=== PATIENT | male | born 1975 | race Caucasian/White ===

== ENCOUNTER 2018-01-04 07:12 | Emergency (ER) | payer SELFPAY ==
[~2018-01-04] VITALS: Ht 175.3 cm; Wt 83.9 kg
[~2018-01-04 07:12] MED LIST: AMOX500C25 PO; CLAR500T3 PO; LANS30EC3 PO; PANT40EC PO
[2018-01-04 07:18] VITALS: BP 147/75
[2018-01-04] MEDS ORDERED: LORazepam 2 MG/ML VIAL IVP ONE (07:35)
[2018-01-04] MEDS ORDERED: NACL 0.9% 1,000 ML IV ONE (07:35)
[2018-01-04 08:10] LABS: BASOPHILS % (AUTO) 0.6 % (0.0-2.0); EOSINOPHILS % (AUTO) 0.8 % (0.0-4.0); HEMATOCRIT 41.7 % (36-52); HEMOGLOBIN 13.9 g/dL (12.0-18.0); LYMPHOCYTES # (AUTO) 0.4 K/uL (2.0-11.5); LYMPHOCYTES % (AUTO) 8.5 % (20.5-51.1); MEAN CORPUSCULAR HEMOGLOBIN 30 pg (27-31); MEAN CORPUSCULAR HGB CONC 33 g/dL (33-37); MEAN CORPUSCULAR VOLUME 91.1 fL (80-94); MONOCYTES # (AUTO) 0.4 K/uL (0.8-1.0); MONOCYTES % (AUTO) 8.5 % (1.7-9.3); NEUTROPHILS # (AUTO) 4.3 K/uL (1.8-7.7); NEUTROPHILS % (AUTO) 81.6 % (42.2-75.2); PLATELET COUNT (AUTO) 86 K/uL (140-450); RED BLOOD CELL COUNT(AUTO) 4.58 MIL/uL (4.20-6.10); WHITE BLOOD COUNT (AUTO) 5.3 K/uL (4.8-10.8)
[2018-01-04 08:34] LABS: ALBUMIN 3.9 g/dL (3.4-5.0); ANION GAP 11.6 (8-16); ASPARTATE AMINOTRANSFERASE 68 U/L (15-37); CARBON DIOXIDE 26.9 mmol/L (21-32); CHLORIDE 101 mmol/L (98-107); CREATININE 1.2 mg/dL (0.7-1.3); GFR ARICAN-AMERICAN 85 mL/min (>90); GLUCOSE 100 mg/dL (74-106); POTASSIUM 3.5 mmol/L (3.5-5.1); SODIUM SERUM 136 mmol/L (136-145); TOTAL BILIRUBIN 0.5 mg/dL (0.0-1.0); UREA NITROGEN, BLOOD 8 mg/dL (7-18)
[2018-01-04] MEDS ORDERED: HALOPERIDOL IM 5 MG/ML VIAL IM ONE (09:30)
[2018-01-04 10:22] LABS: APPEARANCE,URINE CLEAR (CLEAR); BILIRUBIN,URINE NEGATIVE (NEGATIVE); BLOOD, URINE NEGATIVE (NEGATIVE); COLOR,URINE YELLOW (YELLOW); LEUKOCYTE ESTERASE ,URINE NEGATIVE (NEGATIVE); NITRITE, URINE NEGATIVE (NEGATIVE); PH,URINE 6.5 (5.0-9.0); UGLUCOSE NEGATIVE (NEGATIVE)
[2018-01-04 14:05] VITALS: BP 128/75
== END 2018-01-04 14:02 | disposition home or self-care (01) ==
LOC: MED 07:12
DX: F10.239 Alcohol dependence with withdrawal, unspecified (principal); G47.00 Insomnia, unspecified; Z79.2 Long term (current) use of antibiotics; Z79.899 Other long term (current) drug therapy; Y90.0 Blood alcohol level of less than 20 mg/100 ml
CPT/HCPCS: 36415; 80053; 81003; 85025; 96372; 96374; 99284; G0482; J1630; J2060; J7030

== ENCOUNTER 2018-11-08 15:26 | Inpatient (IN) | payer MEDICAID ==
[~2018-11-08] VITALS: Ht 175.3 cm; Wt 83.5 kg
[2018-11-08 15:36] VITALS: BP 138/82
--- NOTE | 2018-11-08 15:42 | NUR ---
Patient ambulated to bed 11. RN evaluating patient at bedside.
[2018-11-08] MEDS ORDERED: ONDANSETRON 4 MG/2 ML VIAL IVP ONE (16:00)
[2018-11-08] MEDS ORDERED: NACL 0.9% 1,000 ML IV ONE (16:00)
[2018-11-08] MEDS ORDERED: MORPHINE SULFATE 4 MG/ML SYR IVP ONE (16:00)
--- NOTE | 2018-11-08 16:00 | NUR ---
BIB SELF. AAO X4 C/O ALCOHOL WITHDRAWALS, INTERMITTENT CHEST PAIN & LIVER PAIN 10/10, SOB SHAKINESS, AUDITORY HALLUCINATIONS "LET'S GO GET HIM" X TODAY. PER PT, LAST ALCOHOL INTAKE WAS YESTERDAY AND PT HAS BEEN DRINKING ALCOHOL FOR A WEEK. PT DENIES SI, NAUSEA. VOMITED X1 TODAY. LEFT HAND TREMORS NOTICED. DENIES N/V/D; SKIN IS PINK/WARM/DRY; AAOX4 WITH EVEN AND STEADY GAIT; LUNGS CLEAR BL; HR EVEN AND REGULAR; PT DENIES ANY FEVER, CP, SOB, OR COUGH AT THIS TIME; PATIENT STATES PAIN OF 0/10 AT THIS TIME; VSS; PATIENT POSITIONED FOR COMFORT; HOB ELEVATED; BEDRAILS UP X2; BED DOWN. ER MD MADE AWARE OF PT STATUS.
[2018-11-08 16:25] LABS: EOSINOPHILS # (AUTO) 0.2 K/uL (0-0.4); HEMATOCRIT 41.9 % (36-52); HEMOGLOBIN 14.1 g/dL (12.0-18.0); LYMPHOCYTES # (AUTO) 1.1 K/uL (2.0-11.5); LYMPHOCYTES % (AUTO) 25.2 % (20.5-51.1); MEAN CORPUSCULAR HEMOGLOBIN 30 pg (27-31); MEAN CORPUSCULAR HGB CONC 34 g/dL (33-37); MEAN CORPUSCULAR VOLUME 88.2 fL (80-94); MONOCYTES # (AUTO) 0.4 K/uL (0.8-1.0); MONOCYTES % (AUTO) 8.6 % (1.7-9.3); NEUTROPHILS # (AUTO) 2.8 K/uL (1.8-7.7); NEUTROPHILS % (AUTO) 62.2 % (42.2-75.2); PLATELET COUNT (AUTO) 161 K/uL (140-450); RED BLOOD CELL COUNT(AUTO) 4.75 MIL/uL (4.20-6.10); RED CELL DISTRIBUTION WIDTH 14.8 % (11.6-13.7); WHITE BLOOD COUNT (AUTO) 4.5 K/uL (4.8-10.8)
[2018-11-08 16:30] LABS: APPEARANCE,URINE CLEAR (CLEAR); BILIRUBIN,URINE NEGATIVE (NEGATIVE); BLOOD, URINE TRACE-I (NEGATIVE); COLOR,URINE YELLOW (YELLOW); LEUKOCYTE ESTERASE ,URINE NEGATIVE (NEGATIVE); NITRITE, URINE NEGATIVE (NEGATIVE); PH,URINE 7.5 (5.0-9.0); UGLUCOSE NEGATIVE (NEGATIVE)
[2018-11-08 16:40] LABS: ANION GAP 15.3 (8-16); CARBON DIOXIDE 25.2 mmol/L (21-32); CREATININE 0.9 mg/dL (0.7-1.3); POTASSIUM 3.5 mmol/L (3.5-5.1)
[2018-11-08 16:42] LABS: BARBITURATE, URINE NEG. ng/ml (NEG <=200); BENZODIAZEPINE, URINE NEG. ng/mL (NEG <=200); CANNABINOID, URINE NEG. ng/mL (NEG <=50); COCAINE, URINE NEG. ng/mL (NEG <=300); OPIATE, URINE NEG. ng/mL (NEG <=2000); PHENCYCLIDINE SCREEN,URINE NEG. ng/mL (NEG <=25)
[2018-11-08 16:46] LABS: ALBUMIN 3.9 g/dL (3.4-5.0)
[2018-11-08 16:47] LABS: RBC,URINE 0-5 /HPF (0-5); WBC,URINE NONE SEEN /HPF (0-5)
[2018-11-08] MEDS ORDERED: LORazepam 2 MG/ML VIAL IVP ONE (16:55)
--- NOTE | 2018-11-08 17:03 | NUR ---
PT IS RESTING IN BED WITH EYES OPEN. PT STATES HIS PAIN HAS BEEN IMPROVED TO 5/10. VSS.
[2018-11-08] MEDS ORDERED: NACL 0.9% 1,000 ML IV SCH (17:30)
[2018-11-08] MEDS ORDERED: LORazepam 1 MG TAB PO PRN (17:30)
[2018-11-08] MEDS ORDERED: ONDANSETRON 4 MG/2 ML VIAL IM/IVP PRN (17:30)
[2018-11-08] MEDS ORDERED: LORazepam 2 MG/ML VIAL IM/IVP PRN ×2 (17:30→20:50)
[2018-11-08] MEDS ORDERED: ACETAMINOPHEN 325 MG TAB PO PRN (17:30)
[2018-11-08] MEDS ORDERED: HYDROcodone/APAP 5/325 MG 1 TAB TAB PO PRN (17:30)
--- NOTE | 2018-11-08 17:55 | NUR ---
Patient will be admitted to care of Alcohol withdrawal. Admited to Telemetry. Will go to room 110B. Belongings list completed. Report to HERNANDEZ Rangel.
--- NOTE | 2018-11-08 17:55 | NUR ---
RECEIVED BED SIDE REPORT FROM ABATEMENT WORKER HERNANDEZ CARMONA. PT ARRIVED VIA GURNEY. ABLE TO AMBULATE FROM DOOR TO BED. ARRIVED ON 2L NC. TOOK PT OFF O2 AND O2 SAT 97%. PT STATES HE HAS RIGHT SIDE ABDOMINAL PAIN. PAIN MEDS GIVEN IN ER. MRSA SWAPPED. NS RUNNING AT 120CC/HR THROUGH RIGHT AC 20G. VS STABLE. ON SEIZURE PRECAUTIONS, WILL CONTINUE TO MONITOR
[2018-11-08 18:06] LABS: MAGNESIUM 1.6 mg/dL (1.8-2.4); PHOSPHORUS 2.2 mg/dL (2.5-4.9)
[2018-11-08 18:19] LABS: PROTHROMBIN TIME 9.7 secs (10.8-13.4)
[2018-11-08] MEDS: FAMOTIDINE 20 MG/2 ML VIAL IV SCH (18:35)
[2018-11-08] MEDS ORDERED: HYDROcodone/APAP 10/325 MG 1 TAB TAB PO PRN (19:05)
--- NOTE | 2018-11-08 19:13 | NUR ---
GAVE BEDSIDE REPORT TO CASINO SLOT SUPERVISOR HERNANDEZ LYLES. PT STABLE
--- NOTE | 2018-11-08 19:15 | NUR ---
Received endorsement from AM shift RN; patient A/Ox4, able to make needs known, Mongolian speaking, ambulatory. Introduced self, updated board. No SOB or distress noted, on room air. IV site on right antecubital, 20 gauge, with IVF running at 120mL/hr. Skin intact. Bed in the lowest position, call light within reach. Initial assessment done. Will continue to monitor.
[2018-11-08 19:19] LABS: ALBUMIN 3.9 g/dL (3.4-5.0); FREE T4 (FREE THYROXINE) 0.89 ng/dL (0.76-1.46); THYROID STIMULATING HORMONE 1.6 uIU/mL (0.34-3.74)
[2018-11-08] MEDS ORDERED: MORPHINE SULFATE 2 MG/ML SYR IVP SCH (19:20)
[2018-11-08 19:29] VITALS: BP 134/73
[2018-11-08] MEDS ORDERED: SODIUM PHOS / POTASSIUM PHOS 1 PKT PDR PO SCH (20:00)
--- NOTE | 2018-11-08 20:10 | NUR ---
Vitals taken, no SOB or distress noted.
[2018-11-08] MEDS: chlordiazePOXIDE 25 MG CAP PO SCH (21:17)
--- NOTE | 2018-11-08 21:40 | NUR ---
Due meds given, tolerated well.
--- NOTE | 2018-11-08 23:45 | NUR ---
Vitals taken, no distress noted. Patient asleep, visible chest rise and fall noted.
[2018-11-09] VITALS: BP 133/79
[2018-11-09] MEDS: chlordiazePOXIDE 25 MG CAP PO SCH ×5 (00:18→23:33)
[2018-11-09] MEDS: MORPHINE SULFATE 2 MG/ML SYR IVP PRN ×2 (00:23→09:43)
[2018-11-09] MEDS: DEXT 5% /NACL 0.9% 1,000 ML IV SCH ×2 (01:06→09:32)
[2018-11-09] MEDS ORDERED: THIAMINE 200 MG/2 ML VIAL IV ONE (01:20)
--- NOTE | 2018-11-09 02:30 | NUR ---
Checks made; patient sleeping comfortably.
[2018-11-09 04:00] VITALS: BP 134/87
--- NOTE | 2018-11-09 04:50 | NUR ---
Vitals taken, no SOB or distress noted.
[2018-11-09 06:38] LABS: ANION GAP 8.7 (8-16); CARBON DIOXIDE 29.6 mmol/L (21-32); CREATININE 0.8 mg/dL (0.7-1.3); POTASSIUM 3.3 mmol/L (3.5-5.1)
[2018-11-09 06:42] LABS: BASOPHILS % (AUTO) 0.4 % (0.0-2.0); EOSINOPHILS # (AUTO) 0.2 K/uL (0-0.4); EOSINOPHILS % (AUTO) 3.6 % (0.0-4.0); HEMATOCRIT 39.4 % (36-52); HEMOGLOBIN 13.2 g/dL (12.0-18.0); LYMPHOCYTES % (AUTO) 23.5 % (20.5-51.1); MEAN CORPUSCULAR HEMOGLOBIN 30 pg (27-31); MEAN CORPUSCULAR HGB CONC 34 g/dL (33-37); MEAN CORPUSCULAR VOLUME 88.8 fL (80-94); MONOCYTES # (AUTO) 0.5 K/uL (0.8-1.0); NEUTROPHILS # (AUTO) 2.6 K/uL (1.8-7.7); NEUTROPHILS % (AUTO) 61.5 % (42.2-75.2); PLATELET COUNT (AUTO) 116 K/uL (140-450); RED BLOOD CELL COUNT(AUTO) 4.44 MIL/uL (4.20-6.10); RED CELL DISTRIBUTION WIDTH 15.2 % (11.6-13.7); WHITE BLOOD COUNT (AUTO) 4.2 K/uL (4.8-10.8)
[2018-11-09 06:58] LABS: CHOL/HDL RATIO 1.8 (1-4.5)
--- NOTE | 2018-11-09 07:20 | NUR ---
Endorsed patient to AM shift RN for continuity of care; patient in stable condition.
--- NOTE | 2018-11-09 07:25 | NUR ---
RECEIVED PT FROM ACADEMIC AFFAIRS SPECIALIST NURSERAFAL, PT IS AWAKE AND LYING ON THE BED WITH IV LINE ON THE RT AC G. 20 WITH D5NS INFUSING AT 125ML/HR,INTACT, SIDE RAILS ARE UP AND CALL LIGHT WITHIN REACH, PT VERBALIZED A PAIN RATE OF 5/10 ON THE ABDOMEN AND NO OTHER SIGN OF DISTRESS NOTED. WILL MONITOR PT.
[2018-11-09 08:00] VITALS: BP 139/84
[2018-11-09] MEDS ORDERED: MAGNESIUM OXIDE 400 MG TAB PO SCH (09:00)
[2018-11-09] MEDS ORDERED: chlordiazePOXIDE 25 MG CAP PO SCH (09:00)
[2018-11-09] MEDS ORDERED: POTASSIUM CHLORIDE 10 MEQ TABER PO SCH ×2 (09:00→23:30)
[2018-11-09] MEDS: THIAMINE 100 MG TAB PO SCH (09:34)
[2018-11-09] MEDS: MULTIVITAMIN 1 TAB PO SCH (09:34)
[2018-11-09] MEDS: FOLIC ACID 1 MG TAB PO SCH (09:35)
--- NOTE | 2018-11-09 09:35 | NUR ---
PT IS AWAKE AND LYING ON THE BED, ORAL MEDICATIONS WERE GIVEN AND PT TOLERATED IT. NO SIGN OF DISTRESS NOTED AND WILL MONITOR PT.
--- NOTE | 2018-11-09 09:43 | NUR ---
PT WAS GIVEN MORPHINE VIA IV PUSH NOW FOR A PAIN RATE OF 8/10 ON THE ABDOMEN. WILL MONITOR AND RE-ASSESS PAIN.
[2018-11-09 12:00] VITALS: BP 137/85
--- NOTE | 2018-11-09 13:10 | NUR ---
PT SIGNED THE CONSENT FOR THE CT OF ABDOMEN AND PELVIS WITH CONTRAST NOW.
--- NOTE | 2018-11-09 13:43 | NUR ---
PT IS OFF THE UNIT NOW FOR A CCT OF ABDOMEN AND PELVIS WITH IV CONTRAST.
[2018-11-09 16:00] VITALS: BP 134/84
[2018-11-09] MEDS: NACL 0.9% 1,000 ML IV SCH (16:35)
--- NOTE | 2018-11-09 17:30 | NUR ---
PT WAS STARTED ON A CLEAR LIQUID DIET NOW.
[2018-11-09] MEDS: FAMOTIDINE 20 MG/2 ML VIAL IV SCH (18:24)
[2018-11-09] MEDS ORDERED: POTASSIUM CHLORIDE 20 MEQ, LIDOCAINE MPF 1% - 5 mL VIAL 25 MG in NACL 0.9% 250 ML IV SCH (18:50)
[2018-11-09] MEDS ORDERED: DICYCLOMINE HCL LIQUID 10 MG/5 ML UDC PO SCH (18:50)
[2018-11-09] MEDS ORDERED: LIDOCAINE VISCOUS 2% 20 ML UDC PO SCH (18:50)
[2018-11-09] MEDS ORDERED: ALUMINUM HYD/MAG/SIMETHICONE 30 ML UDC PO SCH (18:50)
[2018-11-09] MEDS ORDERED: MAG SULF 2000 MG/WATER PREMIX 50 ML IV SCH (18:50)
--- NOTE | 2018-11-09 19:20 | NUR ---
ENDORSED PT TO IMAGING SYSTEM ADMINISTRATOR NURSERAMA FOR CONTINUITY OF CARE.
--- NOTE | 2018-11-09 19:21 | NUR ---
RECEIVED BEDSIDE REPORT FROM DAY SHIFT NURSE. NO SOB NOTED. IV SITE ON RAC 20G, INTACT, PATENT AND ASYMPTOMATIC. SKIN INTACT, WARM AND DRY TO TOUCH. BOARD UPDATED, POC REVIEWED AND DISCUSSED WITH PT. PT VERBALIZED UNDERSTANDING. ALL SAFETY MEASUREMENT ARE MET. POTASSIUM/LIDOCAINE AND XYLOCAINE VISCOUS NOT STARTED ON 1850 DURING DAY SHIFT. BED IN LOW POSITION, CALL LIGHT WITHIN REACH.
--- NOTE | 2018-11-09 19:41 | NUR ---
CONFIRMED WITH DR. SMALLS AND GIVEN XYLOCAINE VISCOUS.
[2018-11-09 20:00] VITALS: BP 126/88
--- NOTE | 2018-11-09 20:30 | NUR ---
REPORTED TO DR. SMALLS THAT WE DON'T MIX POTASSIUM AND LIDOCAINE IN THE FLOOR AND ASK TO CHANGE ORDER. DR. SMALLS DID NOT WANT TO CHANGE ORDER BECAUSE RN OTOLARYNGOLOGY PHARMACY IS COMING FOR DIFFERENT PT. AND WE SHOULD ASK THEM TO MIX. INFORMED CHARGE NURSE, NAYANA.
--- NOTE | 2018-11-09 21:00 | NUR ---
HELD HEPARIN D/T LOW AND DECREASED PLT. 160->116.
--- NOTE | 2018-11-09 23:33 | NUR ---
SETUP TECHNICIAN PHARMACY IS LATE AND DR. SMALLS CHANGED ORDER TO PO POTASSIUM. GIVEN K DUR AND LIBRIUM DR. ACOSTA. POT TOLERATED WELL. Addendum: 11/11/18 at 0054 by Lupe Weinstein RN WHEN RN PULLED OUT LIBRIUM, COUNTED MED 10, IT SAID "RECOUNT", IT WAS 10. RAMA NG WAITING FOR CHARGE NURSENAYANA TO SHOW IT. NAYANA CAME BUT TIMES OUT SO NEEDED TO CLOSE DRAWER AND PULLED IT OUT AGAIN. COUNT MEDS WITH CHARGE NURSENAYANA. BEGINNING COUNT, 10 WAS CONFIRMED.
[2018-11-10] VITALS: BP 132/93
--- NOTE | 2018-11-10 01:15 | NUR ---
PT SLEEPING IN BED. NO S/S OF SOB NOTED. BED IN LOW POSITION, CALL LIGHT WITHIN REACH.
--- NOTE | 2018-11-10 03:25 | NUR ---
PT SLEEPING IN BED. BREATHING EVEN AND UNLABORED. NO ACUTE DISTRESS NOTED.
[2018-11-10 04:00] VITALS: BP 126/79
[2018-11-10] MEDS: chlordiazePOXIDE 25 MG CAP PO SCH ×4 (05:10→23:52)
--- NOTE | 2018-11-10 05:10 | NUR ---
GIVEN LIBRIUM MD ORDERED. PT TOLERATED WELL. WILL CONTINUE TO MONITOR.
[2018-11-10] MEDS: NACL 0.9% 1,000 ML IV SCH ×2 (05:11→17:35)
--- NOTE | 2018-11-10 06:43 | NUR ---
PT AWAKE, SITTING IN BED AND WATCHING TV. NO ACUTE DISTRESS NOTED.
--- NOTE | 2018-11-10 07:23 | NUR ---
RECEIVED REPORT FROM DIRECT ENTRY MIDWIFE NURSE. PT IS AAOX4, CALM AND COOPERATIVE. RESPIRATIONS EVEN AND UNLABORED ON RA. NO C/O PAIN AT THIS TIME. ABDOMEN SOFT, ACTIVE BS, LBM 11/10/18. IV ON RT AC 20 GA RUNNING IVF PER ORDER. SKIN IS INTACT, WARM TO TOUCH. PT REPORTS THAT HE HAD DIFFICULTY SLEEPING AT NIGHT D/T HEARING VOICES TALKING ABOUT HIM. PT SAID "NO" WHEN ASKED IF HE HAD THOUGHTS OF HURTING HIMSELF. REVIEWED POC WITH PT, PT VERBALIZED UNDERSTANDING.
[2018-11-10 08:00] VITALS: BP 123/80
[2018-11-10 08:03] LABS: ANION GAP 11.4 (8-16); CARBON DIOXIDE 30.5 mmol/L (21-32); CREATININE 0.9 mg/dL (0.7-1.3); POTASSIUM 3.9 mmol/L (3.5-5.1)
--- NOTE | 2018-11-10 08:08 | NUR ---
PATIENT HAS BEEN SCREENED AND CATEGORIZED LOW NUTRITION RISK. PATIENT WILL BE SEEN WITHIN 7 DAYS OF ADMISSION. 11/15/[address]
[2018-11-10] MEDS: MULTIVITAMIN 1 TAB PO SCH (08:14)
[2018-11-10] MEDS: FOLIC ACID 1 MG TAB PO SCH (08:14)
[2018-11-10] MEDS: THIAMINE 100 MG TAB PO SCH (08:14)
--- NOTE | 2018-11-10 08:14 | NUR ---
PT GIVEN MORNING MEDICATIONS. PT WAS ABLE TO SPEAK WITH DR. AUSTIN ABOUT CONCERNS. PT HAS NO COMPLAINTS OR SIGNS OF DISTRESS AT THIS TIME.
[2018-11-10 08:17] LABS: MAGNESIUM 2.2 mg/dL (1.8-2.4); PHOSPHORUS 3.2 mg/dL (2.5-4.9)
[2018-11-10 08:38] LABS: BASOPHILS % (AUTO) 0.4 % (0.0-2.0); EOSINOPHILS # (AUTO) 0.2 K/uL (0-0.4); EOSINOPHILS % (AUTO) 3.7 % (0.0-4.0); HEMATOCRIT 42.7 % (36-52); HEMOGLOBIN 14.2 g/dL (12.0-18.0); LYMPHOCYTES # (AUTO) 0.8 K/uL (2.0-11.5); LYMPHOCYTES % (AUTO) 18.4 % (20.5-51.1); MEAN CORPUSCULAR HEMOGLOBIN 30 pg (27-31); MEAN CORPUSCULAR HGB CONC 33 g/dL (33-37); MEAN CORPUSCULAR VOLUME 90.1 fL (80-94); MONOCYTES # (AUTO) 0.4 K/uL (0.8-1.0); MONOCYTES % (AUTO) 8.7 % (1.7-9.3); NEUTROPHILS # (AUTO) 2.8 K/uL (1.8-7.7); NEUTROPHILS % (AUTO) 68.8 % (42.2-75.2); PLATELET COUNT (AUTO) 112 K/uL (140-450); RED BLOOD CELL COUNT(AUTO) 4.74 MIL/uL (4.20-6.10); RED CELL DISTRIBUTION WIDTH 15.2 % (11.6-13.7); WHITE BLOOD COUNT (AUTO) 4.1 K/uL (4.8-10.8)
[2018-11-10] MEDS: MULTIVITAMIN-12 10 ML, THIAMINE 100 MG, MAGNESIUM SULFATE 50% 2,000 MG, FOLIC ACID 1 MG... IV SCH ×5 (08:51)
--- NOTE | 2018-11-10 08:51 | NUR ---
HELD HEPARIN AT THIS TIME, AWAITING LAB TO POST VALUES.
[2018-11-10] MEDS ORDERED: QUEtiapine FUMARATE 25 MG TAB PO SCH ×2 (10:18→21:00)
--- NOTE | 2018-11-10 11:54 | NUR ---
RECEIVED VALUE FROM LAB, PLATELET AT 112, HELD HEPARIN.
[2018-11-10 12:00] VITALS: BP 138/89
[2018-11-10 16:00] VITALS: BP 118/71
[2018-11-10] MEDS: FAMOTIDINE 20 MG/2 ML VIAL IV SCH (18:24)
--- NOTE | 2018-11-10 18:24 | NUR ---
GIVEN PEPCID AND LIBRIUM PER ORDER. PT HAS NO C/O PAIN AT THIS TIME.
[2018-11-10] MEDS ORDERED: MULTIVITAMIN-12 10 ML, THIAMINE 100 MG, FOLIC ACID 1 MG, MAGNESIUM SULFATE 50% 2,000 MG... IV SCH ×5 (19:00)
--- NOTE | 2018-11-10 19:22 | NUR ---
ENDORSED PT TO OIM ARCHITECT NURSE. PT HAS NO SIGNS OF DISTRESS AT THIS TIME.
--- NOTE | 2018-11-10 19:23 | NUR ---
RECEIVED BEDSIDE REPORT FROM DAY SHIFT NURSE. NO S/S OF SOB NOTED IN ROOM AIR. SKIN INTACT, WARM AND DRY TO TOUCH. IV SITE ON RAC 20G, PATENT, INTACT, ASYMPTOMATIC. BOARD UPDATED, POC REVIEWED AND DISCUSSED WITH PT. PT VERBALIZED UNDERSTANDING. BED IN LOW POSITION. CALL LIGHT WITHIN REACH.
[2018-11-10 20:00] VITALS: BP 112/67
[2018-11-10] MEDS ORDERED: ZOLPIDEM 5 MG TAB PO SCH (21:30)
--- NOTE | 2018-11-10 21:34 | NUR ---
PT C/O INSOMNIA, GIVEN AMBIEN DR ORDERED. GIVEN HEPARIN WITH PLT 112, REPORTED AND COFIRMED WITH DR. SMALLS BEFORE GIVEN. PT TOLERATED WELL.
--- NOTE | 2018-11-10 23:52 | NUR ---
GIVEN LIBRIUM DRSiddhartha ORDERED. PT TOLERATED WELL. WILL CONTINUE TO MONITOR.
[2018-11-11] VITALS: BP 118/70
--- NOTE | 2018-11-11 02:12 | NUR ---
PT SLEEPING IN BED COMFORTABLY. BREATHING EVEN AND UNLABORED. BED IN LOW POSITION. CALL LIGHT WITHIN REACH.
[2018-11-11 04:00] VITALS: BP 112/68
--- NOTE | 2018-11-11 04:00 | NUR ---
VS CHECKED, WITHIN NORMAL RANGE. NO ACUTE DISTRESS NOTED.
[2018-11-11] MEDS: chlordiazePOXIDE 25 MG CAP PO SCH (06:05)
--- NOTE | 2018-11-11 06:05 | NUR ---
GIVEN LIBRIUM MD ORDERED. PT TOLERATED WELL.
[2018-11-11] MEDS: NACL 0.9% 1,000 ML IV SCH (06:06)
--- NOTE | 2018-11-11 06:57 | NUR ---
PT SITTING IN CHAIR, WATCHING TV. NO ACUTE DISTRESS NOTED.
--- NOTE | 2018-11-11 07:16 | NUR ---
RECEIVED REPORT FROM CLINICAL STAFF PHARMACIST NURSE. PATIENT SITTING IN BEDSIDE CHAIR WATCHING TV. NO DISTRESS NOTED. DENIES ANY PAIN. AAOX4, CALM, COOPERATIVE, SKIN COLOR APPROPRIATE TO ETHNICITY, WARM TO TOUCH. SKIN INTACT. RESPIRATIONS EVEN, UNLABORED, ON ROOM AIR. IV SITE INTACT, PATENT, AND INFUSING IVF PER MD ORDERS. REVIEWED PLAN OF CARE WITH PATIENT. PATIENT VERBALIZED UNDERSTANDING. SAFETY MEASURES IN PLACE, CALL LIGHT WITHIN REACH. WILL CONTINUE TO MONITOR.
[2018-11-11 07:25] LABS: BASOPHILS % (AUTO) 0.4 % (0.0-2.0); EOSINOPHILS # (AUTO) 0.2 K/uL (0-0.4); EOSINOPHILS % (AUTO) 3.4 % (0.0-4.0); HEMATOCRIT 39.9 % (36-52); HEMOGLOBIN 13.1 g/dL (12.0-18.0); LYMPHOCYTES % (AUTO) 19.6 % (20.5-51.1); MEAN CORPUSCULAR HEMOGLOBIN 30 pg (27-31); MEAN CORPUSCULAR HGB CONC 33 g/dL (33-37); MONOCYTES # (AUTO) 0.5 K/uL (0.8-1.0); MONOCYTES % (AUTO) 9.5 % (1.7-9.3); NEUTROPHILS # (AUTO) 3.4 K/uL (1.8-7.7); NEUTROPHILS % (AUTO) 67.1 % (42.2-75.2); PLATELET COUNT (AUTO) 107 K/uL (140-450); RED BLOOD CELL COUNT(AUTO) 4.44 MIL/uL (4.20-6.10); RED CELL DISTRIBUTION WIDTH 15.4 % (11.6-13.7)
[2018-11-11 07:39] LABS: ANION GAP 12.2 (8-16); CARBON DIOXIDE 27.6 mmol/L (21-32); POTASSIUM 3.8 mmol/L (3.5-5.1)
[2018-11-11 07:55] LABS: MAGNESIUM 1.8 mg/dL (1.8-2.4)
[2018-11-11 08:00] VITALS: BP 134/84
[2018-11-11] MEDS: MULTIVITAMIN-12 10 ML, THIAMINE 100 MG, MAGNESIUM SULFATE 50% 2,000 MG, FOLIC ACID 1 MG... IV SCH ×5 (09:00)
--- NOTE | 2018-11-11 09:00 | NUR ---
PATIENT TAKING A SHOWER. WILL CONTINUE TO MONITOR WHEN PATIENT DONE FROM SHOWER
[2018-11-11] MEDS: FOLIC ACID 1 MG TAB PO SCH (09:57)
[2018-11-11] MEDS: THIAMINE 100 MG TAB PO SCH (09:57)
[2018-11-11] MEDS: MULTIVITAMIN 1 TAB PO SCH (09:58)
--- NOTE | 2018-11-11 09:59 | NUR ---
PATIENT SITTING IN BEDSIDE CHAIR WATCHING TV. SCHEDULED MEDICATIONS DUE GIVEN. BANANA BAG NOT GIVEN D/T PATIENT BEING DISCHARGED. HEPARIN SUB Q NOT GIVEN PATIENT AMBULATING AND PATIENT REFUSED AT THIS TIME D/T BEING DISCHARGED. WILL CONTINUE TO MONITOR.
--- NOTE | 2018-11-11 11:10 | NUR ---
DISCHARGE INSTRUCTIONS PROVIDED TO PATIENT IN PREFERRED LANGUAGE OF GUAMANIAN. INSTRUCTIONS ON FOLLOW-UP VISIT WITH PCP, DIET REGIMEN AFTER ETOH WITHDRAWAL, ETOH WITHDRAWAL SYMPTOMS, AND MEDICATION REGIMEN. ANSWERED ALL OF PATIENT'S QUESTIONS REGARDING DISCHARGE. PATIENT VERBALIZED COMPLETE UNDERSTANDING. PATIENT ALREADY DRESSED AND READY TO GO HOME. AWAITING FOR TO PICK HIM UP. WILL CONTINUE TO MONITOR.
--- NOTE | 2018-11-11 11:25 | NUR ---
AT BEDSIDE READY TO TAKE PATIENT HOME. IV SITE REMOVED WITH MINIMAL BLOOD AND LUMEN COMPLETELY INTACT. ID BANDS REMOVED. ESCORTED PATIENT DOWN TO LOBBY VIA STEADY AMBULATION. PATIENT DISCHARGED TO HOME IN PRIVATE VEHICLE IN STABLE CONDITION AT THIS TIME.
--- NOTE | 2018-11-11 12:54 | NUR ---
Center Punch Operator Note: Late entry for 11/10/18: Center Punch Operator Assessment and Consultation: I met with patient at bedside. Patient alert and oriented x4. I introduced myself to patient and explained my role as a biomedical engineering supervisor. Patient verbalized understanding. I obtained the following information from patient. He lives at home with his jacque Alarcon at [address] [place] [address]. Prior to hospital admission patient was independent with ADLs and was not using any DME. Patient's pcp is ([place], [place]). He has not seen over 1 year. I emphasized to him the importance of following up with pcp regularly. He verbalized understanding and stated he will follow up with post discharge. Patient is not taking any rx medication at home. He drives locally from home to work and from work to home. He does not drive long distances. I discussed alcohol abuse with patient. Patient expressed feeling comfortable speaking about alcohol abuse. During consultation I used motivational interviewing techniques, active listening, and opened ended questions to build rapport with patient. He admitted increasing his alcohol intake from 12 pack of beers and 5 shots of alcohol to 24 beers of beer daily from approximately 3 weeks to 1 month. He stated "I sometimes try to stop cold turkey but I know I can this way". He denied SI. He also denied HI. He shared with me he would like to quit drinking and reported he is not a bad person. He expressed he does not let his alcohol abuse affect employment or relationship with his children. I validated his feelings. I asked him which options he has considered taking to stop drinking. He replied he is not able to be admitted at an inpatient detox facility because he needs to keep being employed. I asked him if an outpatient alcohol abuse treatment program is an option. He replied yes and asked me how much program would cost. I provided him with education on alcohol/substance abuse treatment programs and asked him if he has considered enrolling into a health plan such as [employer] or [facility] to manage his [employer]. I explained to him if he was enrolled in either [facility] or [employer] he would have more alcohol/substance abuse treatment programs. He stated he has considered and his jacque Hart will be assisting him with enrolling into either [employer] or [facility].
== END 2018-11-11 11:25 | disposition home or self-care (01) | DRG 42 ==
LOC: MED 15:26 → MTU 17:30
PROVIDERS: ADMIT General Practice; ATTEND General Practice
DX: G31.2 Degeneration of nervous system due to alcohol (principal); F10.121 Alcohol abuse with intoxication delirium; G92 Toxic encephalopathy; E44.0 Moderate protein-calorie malnutrition; K76.0 Fatty (change of) liver, not elsewhere classified; E83.42 Hypomagnesemia; E83.39 Other disorders of phosphorus metabolism; Y90.1 Blood alcohol level of 20-39 mg/100 ml; K21.9 Gastro-esophageal reflux disease without esophagitis; E87.6 Hypokalemia; R44.0 Auditory hallucinations; G47.00 Insomnia, unspecified; Z68.27 Body mass index [BMI] 27.0-27.9, adult; Z79.899 Other long term (current) drug therapy
CPT/HCPCS: 36415; 71045; 76700; 80048; 80053; 80305; 81001; 82040; 82140; 82150; 82272; 82948; 83036; 83605; 83690; 83735; 83880; 84100; 84439; 84443; 84484; 85025; 85610; 85730; 87081; 87086; 96361; 96374; 96375; 99285; A9153; G0482; J1644; J2001; J2060; J2270; J2405; J3411; J3475; J3480; J3490; J7030; J7042; Q0092; Q9967

== ENCOUNTER 2019-01-15 11:31 | Emergency (ER) | payer MEDICAID ==
[~2019-01-15] VITALS: Ht 175.3 cm; Wt 86.2 kg
[2019-01-15 11:31] VITALS: BP 154/81
[2019-01-15] MEDS ORDERED: MULTIVITAMIN-12 10 ML, THIAMINE 100 MG, MAGNESIUM SULFATE 50% 2,000 MG, FOLIC ACID 1 MG... IV SCH ×5 (11:40)
[2019-01-15] MEDS ORDERED: ONDANSETRON 4 MG/2 ML VIAL IVP ONE (11:55)
[2019-01-15] MEDS ORDERED: PANTOPRAZOLE 40 MG INJ VIAL IVP ONE (11:55)
[2019-01-15 12:04] LABS: BASOPHILS % (AUTO) 0.2 % (0.0-2.0); EOSINOPHILS % (AUTO) 0.9 % (0.0-4.0); HEMATOCRIT 41.3 % (36-52); HEMOGLOBIN 13.7 g/dL (12.0-18.0); LYMPHOCYTES # (AUTO) 1.3 K/uL (2.0-11.5); LYMPHOCYTES % (AUTO) 23.6 % (20.5-51.1); MEAN CORPUSCULAR HEMOGLOBIN 30 pg (27-31); MEAN CORPUSCULAR HGB CONC 33 g/dL (33-37); MEAN CORPUSCULAR VOLUME 90.3 fL (80-94); MONOCYTES # (AUTO) 0.5 K/uL (0.8-1.0); MONOCYTES % (AUTO) 8.5 % (1.7-9.3); NEUTROPHILS # (AUTO) 3.6 K/uL (1.8-7.7); NEUTROPHILS % (AUTO) 66.8 % (42.2-75.2); PLATELET COUNT (AUTO) 82 K/uL (140-450); RED BLOOD CELL COUNT(AUTO) 4.57 MIL/uL (4.20-6.10); RED CELL DISTRIBUTION WIDTH 15.3 % (11.6-13.7); WHITE BLOOD COUNT (AUTO) 5.4 K/uL (4.8-10.8)
--- NOTE | 2019-01-15 12:05 | NUR ---
called pharmacy for banana bag ivf. will deliver. medicated pt with meds as ordered. aaox4, no distress noted. no si or hallucination at this time. pt resting comfortably. call light within reach. chris jack to monitor pt./
[2019-01-15 12:20] LABS: CARBON DIOXIDE 28.2 mmol/L (21-32); CHLORIDE 99 mmol/L (98-107); CREATININE 1.1 mg/dL (0.7-1.3); GFR ARICAN-AMERICAN 94 mL/min (>90); GLUCOSE 153 mg/dL (74-106); POTASSIUM 3.2 mmol/L (3.5-5.1); SODIUM SERUM 139 mmol/L (136-145); UREA NITROGEN, BLOOD 8 mg/dL (7-18)
[2019-01-15 12:25] LABS: ALBUMIN 4.1 g/dL (3.4-5.0); ASPARTATE AMINOTRANSFERASE 49 U/L (15-37); TOTAL BILIRUBIN 0.8 mg/dL (0.0-1.0)
[2019-01-15 12:26] LABS: ACETAMINOPHEN < 0.5 ug/ml (10-30); SALICYLATE < 2.8 mg/dL (2.8-20.0)
--- NOTE | 2019-01-15 12:49 | NUR ---
administered meds to pt as ordered. gave urinal at the bedside to collect the urine sample.
[2019-01-15 13:37] LABS: BARBITURATE, URINE NEG. ng/ml (NEG <=200); BENZODIAZEPINE, URINE NEG. ng/mL (NEG <=200); CANNABINOID, URINE NEG. ng/mL (NEG <=50); COCAINE, URINE NEG. ng/mL (NEG <=300); OPIATE, URINE NEG. ng/mL (NEG <=2000); PHENCYCLIDINE SCREEN,URINE NEG. ng/mL (NEG <=25)
[2019-01-15] MEDS ORDERED: POTASSIUM CHLORIDE 10 MEQ TABER PO ONE (13:55)
[2019-01-15] MEDS ORDERED: KETOROLAC 30 MG/ML VIAL IVP ONE (14:30)
--- NOTE | 2019-01-15 15:35 | NUR ---
Patient discharged with v/s stable. Written and verbal after care instructions given and explained. Patient alert, oriented and verbalized understanding of instructions. Ambulatory with steady gait. All questions addressed prior to discharge. ID band removed. Patient advised to follow up with PMD. Rx of xanax 0.5 mg given. Patient educated on indication of medication including possible reaction and side effects. Opportunity to ask questions provided and answered.
[2019-01-15 15:37] VITALS: BP 129/83
== END 2019-01-15 15:35 | disposition home or self-care (01) ==
LOC: MED 11:31
DX: F10.129 Alcohol abuse with intoxication, unspecified (principal); R19.7 Diarrhea, unspecified; Y90.9 Presence of alcohol in blood, level not specified
CPT/HCPCS: 36415; 74022; 80053; 80305; 85025; 93005; 96365; 96375; 99284; C9113; G0480; G0482; J1885; J2405; A9153; J3411; J3475; J3490; J7030

== ENCOUNTER 2019-01-16 21:52 | Emergency (ER) | payer MEDICAID ==
[~2019-01-16] VITALS: Ht 175.3 cm; Wt 88.0 kg
[2019-01-16 22:04] VITALS: BP 156/90
[2019-01-17] MEDS ORDERED: DIAZEPAM 5 MG TAB PO ONE (05:00)
[2019-01-17 05:30] VITALS: BP 139/86
== END 2019-01-17 05:03 | disposition home or self-care (01) ==
LOC: MED 21:52
DX: F10.20 Alcohol dependence, uncomplicated (principal); F17.200 Nicotine dependence, unspecified, uncomplicated
CPT/HCPCS: 99283

== ENCOUNTER 2020-08-04 09:33 | Emergency (ER) | payer MEDICAID, OTHER ==
[~2020-08-04] VITALS: Ht 175.3 cm; Wt 83.9 kg
[2020-08-04 09:52] VITALS: BP 158/81
[2020-08-04] MEDS ORDERED: LORazepam 2 MG/ML VIAL IVP ONE (10:00)
[2020-08-04] MEDS ORDERED: NACL 0.9% 2,000 ML IV ONE (10:50)
[2020-08-04 11:00] LABS: BASOPHILS # (AUTO) 0.1 K/uL (0.00-0.22); EOSINOPHILS # (AUTO) 0.1 K/uL (0-0.4); EOSINOPHILS % (AUTO) 1.7 % (0.0-4.0); HEMATOCRIT 43.6 % (36-52); HEMOGLOBIN 14.8 g/dL (12.0-18.0); LYMPHOCYTES # (AUTO) 2.8 K/uL (2.0-11.5); LYMPHOCYTES % (AUTO) 46.7 % (20.5-51.1); MEAN CORPUSCULAR HEMOGLOBIN 31 pg (27-31); MEAN CORPUSCULAR HGB CONC 34 g/dL (33-37); MEAN CORPUSCULAR VOLUME 90.2 fL (80-94); MONOCYTES # (AUTO) 0.3 K/uL (0.8-1.0); MONOCYTES % (AUTO) 5.5 % (1.7-9.3); NEUTROPHILS # (AUTO) 2.7 K/uL (1.8-7.7); NEUTROPHILS % (AUTO) 45.1 % (42.2-75.2); PLATELET COUNT (AUTO) 148 K/uL (140-450); RED BLOOD CELL COUNT(AUTO) 4.83 MIL/uL (4.20-6.10); RED CELL DISTRIBUTION WIDTH 14.6 % (11.6-13.7)
[2020-08-04 11:14] LABS: ALBUMIN 4.3 g/dL (3.4-5.0); ANION GAP 17.2 (8-16); ASPARTATE AMINOTRANSFERASE 61 U/L (15-37); CARBON DIOXIDE 25.3 mmol/L (21-32); CHLORIDE 99 mmol/L (98-107); CREATININE 0.8 mg/dL (0.6-1.3); GFR ARICAN-AMERICAN 134 mL/min (>90); GLUCOSE 114 mg/dL (74-106); POTASSIUM 3.5 mmol/L (3.5-5.1); SODIUM SERUM 138 mmol/L (136-145); TOTAL BILIRUBIN 1.2 mg/dL (0.0-1.0); UREA NITROGEN, BLOOD 10 mg/dL (7-18)
[2020-08-04 11:23] LABS: SALICYLATE < 2.8 mg/dL (2.8-20.0)
[2020-08-04 11:25] LABS: BARBITURATE, URINE NEGATIVE ng/ml (NEG <=200); BENZODIAZEPINE, URINE NEGATIVE ng/mL (NEG <=200); CANNABINOID, URINE NEGATIVE ng/mL (NEG <=50); COCAINE, URINE NEGATIVE ng/mL (NEG <=300); OPIATE, URINE NEGATIVE ng/mL (NEG <=2000); PHENCYCLIDINE SCREEN,URINE NEGATIVE ng/mL (NEG <=25)
[2020-08-04] MEDS ORDERED: KETOROLAC 30 MG/ML VIAL IVP ONE (12:00)
[2020-08-04] MEDS ORDERED: NAPR-54 PO (13:12)
[2020-08-04] MEDS ORDERED: ATI.5 PO (13:17)
[2020-08-04] MEDS ORDERED: BEN10 PO (13:17)
[2020-08-04 13:25] LABS: ACETAMINOPHEN < 0.5 ug/ml (10-30)
[2020-08-04 13:37] VITALS: BP 158/81
== END 2020-08-04 13:38 | disposition home or self-care (01) ==
LOC: MED 09:33
DX: F10.239 Alcohol dependence with withdrawal, unspecified (principal); R01.1 Cardiac murmur, unspecified; R25.1 Tremor, unspecified; Y90.9 Presence of alcohol in blood, level not specified
CPT/HCPCS: 36415; 74176; 80053; 80305; 85025; 96361; 96374; 96375; 99284; G0480; G0482; J1885; J2060; J7030

== ENCOUNTER 2020-08-05 14:12 | Emergency (ER) | payer OTHER ==
[~2020-08-05] VITALS: Ht 175.3 cm; Wt 79.4 kg
[~2020-08-05 14:12] MED LIST changes: -AMOX500C25 PO; +ATI.5 PO; +BEN10 PO; -CLAR500T3 PO; -LANS30EC3 PO; -PANT40EC PO
[2020-08-05 14:14] VITALS: BP 151/94
[2020-08-05] MEDS ORDERED: ONDANSETRON 4 MG/2 ML VIAL IVP ONE (14:50)
[2020-08-05] MEDS ORDERED: LORazepam 2 MG/ML VIAL IVP ONE (14:50)
[2020-08-05] MEDS ORDERED: NACL 0.9% 2,000 ML IV ONE (14:50)
[2020-08-05 15:07] LABS: BASOPHILS % (AUTO) 0.4 % (0.0-2.0); EOSINOPHILS # (AUTO) 0.1 K/uL (0-0.4); EOSINOPHILS % (AUTO) 1.9 % (0.0-4.0); HEMATOCRIT 41.7 % (36-52); HEMOGLOBIN 14.2 g/dL (12.0-18.0); LYMPHOCYTES # (AUTO) 1.4 K/uL (2.0-11.5); LYMPHOCYTES % (AUTO) 24.2 % (20.5-51.1); MEAN CORPUSCULAR HEMOGLOBIN 31 pg (27-31); MEAN CORPUSCULAR HGB CONC 34 g/dL (33-37); MONOCYTES # (AUTO) 0.6 K/uL (0.8-1.0); MONOCYTES % (AUTO) 9.8 % (1.7-9.3); NEUTROPHILS # (AUTO) 3.6 K/uL (1.8-7.7); NEUTROPHILS % (AUTO) 63.7 % (42.2-75.2); PLATELET COUNT (AUTO) 115 K/uL (140-450); RED BLOOD CELL COUNT(AUTO) 4.58 MIL/uL (4.20-6.10); RED CELL DISTRIBUTION WIDTH 14.7 % (11.6-13.7); WHITE BLOOD COUNT (AUTO) 5.7 K/uL (4.8-10.8)
[2020-08-05 15:19] LABS: ALBUMIN 4.1 g/dL (3.4-5.0); ANION GAP 12.7 (8-16); BILIRUBIN,DIRECT 0.2 mg/dL (0.0-0.3); CARBON DIOXIDE 27.1 mmol/L (21-32); POTASSIUM 3.8 mmol/L (3.5-5.1); TOTAL BILIRUBIN 0.9 mg/dL (0.0-1.0)
[2020-08-05 16:27] VITALS: BP 126/81
== END 2020-08-05 16:27 | disposition home or self-care (01) ==
LOC: MED 14:12
DX: K29.20 Alcoholic gastritis without bleeding (principal)
CPT/HCPCS: 36415; 80053; 81002; 82247; 82248; 83690; 85025; 96365; 96375; 99284; J2060; J2405; J7030

== ENCOUNTER 2022-12-30 16:08 | Emergency (ER) | payer OTHER ==
[~2022-12-30] VITALS: Ht 175.3 cm; Wt 88.5 kg
[2022-12-30 16:26] VITALS: BP 117/72; PULSE 63; RESP 18; TEMP 98.3; O2SAT 97
[2022-12-30] MEDS ORDERED: SULF-59 PO (17:55)
[2022-12-30 18:06] VITALS: BP 117/72; PULSE 63; RESP 18; TEMP 98.3; O2SAT 97
== END 2022-12-30 18:07 | disposition home or self-care (01) ==
LOC: MED 16:08
DX: L03.116 Cellulitis of left lower limb (principal); Z79.899 Other long term (current) drug therapy
CPT/HCPCS: 99284